=== PATIENT | male | born 1965 | race Caucasian/White ===

== ENCOUNTER 2021-05-29 01:00 | Emergency (ER) | payer OTHER ==
[2021-05-29 01:57] LABS: BUN/CREATININE RATIO 17 (0-10)
[2021-05-29 02:39] LABS: HEMOGLOBIN 14.6 gm/dl (14.0-17.5); RED BLOOD COUNT 4.95 M/UL (4.20-5.50); WHITE BLOOD COUNT 17.1 K/UL (4.5-11.0)
== END 2021-05-29 11:55 | disposition home or self-care (01) ==
LOC: ER1 01:00
PROVIDERS: Physician Assistant Medical
DX: F32.A Depression, unspecified (principal); F19.129 Other psychoactive substance abuse with intoxication, unspecified
CPT/HCPCS: 80053; 80307; 81001; 85025; 96374; 99284; G0480; J3411; J3475; J7030